=== PATIENT | female | born 1930 | race Caucasian/White ===

== ENCOUNTER 2018-07-31 13:46 | Emergency (ER) | payer MEDICARE, MEDICAID ==
[~2018-07-31] VITALS: Ht 162.6 cm; Wt 80.3 kg
--- NOTE | 2018-07-31 13:50 | NUR ---
BIB DAUGHTER C/O LEFT ELBOW PAIN, RIGHT ARM PAIN AND HEMATOMA TO R SUPERIOR ORBITAL S/P GLF, -KO. NAD NOTED, VSS, RESP EVEN AND UNLABORED, PT WAS PUT ON MONITOR AND HOSPITAL GOWN, WAITING FOR MD SALGUERO.
[2018-07-31 14:43] LABS: BASOPHILS % (AUTO) 0.3 % (0.0-2.0); EOSINOPHILS % (AUTO) 0.3 % (0.0-6.0); HEMATOCRIT 36 % (33-45); HEMOGLOBIN 11.4 g/dL (11.5-14.8); LYMPHOCYTES # (AUTO) 1.7 /CMM (0.8-4.8); LYMPHOCYTES % (AUTO) 18.5 % (20.0-44.0); MEAN CORPUSCULAR HEMOGLOBIN 27 PG (26.0-33.0); MEAN CORPUSCULAR HGB CONC 32 g/dl (31.0-36.0); MEAN CORPUSCULAR VOLUME 83 fL (82-100); MONOCYTES # (AUTO) 0.4 /CMM (0.1-1.30); MONOCYTES % (AUTO) 4.9 % (2.0-12.0); NEUTROPHILS # (AUTO) 6.9 /CMM (1.8-8.9); PLATELET COUNT (AUTO) 145 /CMM (150-450); RDW COEFFICIENT OF VARIATION 13.9 (11.5-15.0); RED BLOOD CELL COUNT(AUTO) 4.26 MIL/uL (4.0-5.2)
[2018-07-31 14:55] LABS: CALCIUM, SERUM 8.7 mg/dL (8.5-10.1); CARBON DIOXIDE 26 mmol/L (21-32); CHLORIDE 101 mmol/L (98-107); CREATININE 1.3 mg/dL (0.6-1.3); GLUCOSE 103 mg/dL (74-106); POTASSIUM 3.5 mmol/L (3.5-5.1); SODIUM SERUM 135 mmol/L (136-145); UREA NITROGEN, BLOOD 25 mg/dL (7-18)
[2018-07-31 14:58] LABS: INR 0.94 (0.85-1.15)
[2018-07-31 15:01] LABS: ALANINE AMINOTRANSFERASE 19 U/L (12-78); ALBUMIN 3.3 g/dL (3.4-5.0); ALKALINE PHOSPHATASE 94 U/L (46-116); ASPARTATE AMINOTRANSFERASE 21 U/L (15-37); BILIRUBIN,DIRECT 0.1 mg/dL (0.0-0.2); BILIRUBIN,TOTAL 0.5 mg/dL (0.2-1.0); TOTAL PROTEIN, SERUM 6.9 g/dL (6.4-8.2)
--- NOTE | 2018-07-31 15:15 | NUR ---
PT TO [facility]AN
[2018-07-31] MEDS ORDERED: ACETAMINOPHEN ES 500 MG TABLET ONE (15:33)
[2018-07-31] MEDS: ACETAMINOPHEN ES 500 MG TABLET PO ONE (15:37)
[2018-07-31 17:54] VITALS: BP 156/80
--- NOTE | 2018-07-31 17:55 | NUR ---
Patient discharged to home in stable condition. Written and verbal after care instructions given. Patient verbalizes understanding of instruction.
== END 2018-07-31 17:56 | disposition home or self-care (01) ==
LOC: ER 13:47
DX: S42.452A Displaced fracture of lateral condyle of left humerus, initial encounter for closed fracture (principal); S52.122A Displaced fracture of head of left radius, initial encounter for closed fracture; S52.121A Displaced fracture of head of right radius, initial encounter for closed fracture; S01.21XA Laceration without foreign body of nose, initial encounter; S80.01XA Contusion of right knee, initial encounter; S05.11XA Contusion of eyeball and orbital tissues, right eye, initial encounter; I10 Essential (primary) hypertension; E78.00 Pure hypercholesterolemia, unspecified; E11.9 Type 2 diabetes mellitus without complications; Z85.3 Personal history of malignant neoplasm of breast; Z90.11 Acquired absence of right breast and nipple; W01.0XXA Fall on same level from slipping, tripping and stumbling without subsequent striking against object, initial encounter; Y93.01 Activity, walking, marching and hiking; Y92.89 Other specified places as the place of occurrence of the external cause; Y99.8 Other external cause status
CPT/HCPCS: 36415; 70450-TC; 72125-TC; 73080-TC; 73564-TC; 80048-TC; 80076-TC; 85025-TC; 85730-TC; A4606; Z7610